=== PATIENT | female | born 2000 | race African-American/Black ===

== ENCOUNTER 2019-05-16 14:23 | Emergency (ER) | payer OTHER ==
--- OUTSIDE RECORDS SUMMARY | 2019-05-16 14:26 | XMS REPORT ---
:2000 Author Organization [facility] Address [address] [place] [address] Dr. Springer. [address] [place] [id number] Care Team Providers Name Role Phone Unavailable Unavailable Unavailable Problems This patient has no known problems. Allergies, Adverse Reactions, Alerts This patient has no known allergies or adverse reactions. Medications This patient has no known medications.
[2019-05-16 15:54] LABS: Absolute Lymphocytes (CBC) 0.7 K/uL (0.7-4.9); Basophils % 0.5 % (0-1.3); Hematocrit 39.2 % (36.0-45.0); Lymphocytes % 13.2 % (15.3-44.8); MPV 7.8 fL (7.6-11.3); RBC Red Blood Cell Count 4.58 M/uL (3.86-4.86)
[2019-05-16 16:09] LABS: ALT/SGPT 39 U/L (12-78); AST/SGOT 16 U/L (15-37); Albumin 4.1 g/dL (3.4-5.0); Alkaline Phosphatase 70 U/L (45-117); BUN Blood Urea Nitrogen 13 mg/dL (7-18); Bicarbonate 27 mmol/L (21-32); Bilirubin Direct < 0.1 mg/dL (0-0.2); Bilirubin Total 0.3 mg/dL (0.2-1.0); Glucose Level 85 mg/dL (74-106); Lipase 71 U/L (73-393); Potassium 3.5 mmol/L (3.5-5.1); Protein, Total 8.5 g/dL (6.4-8.2); Sodium Level 143 mmol/L (136-145)
[2019-05-16 17:21] LABS: Urine Blood 1+ (NEG); Urine Glucose NEGATIVE (NEG); Urine Protein NEGATIVE (NEG); Urine Specific Gravity 1.015 (1.005-1.030); Urine pH 5.5 (5.0-7.0)
--- NOTE | 2019-05-16 17:46 | RAD REPORT ---
EXAM DESCRIPTION: CT - Abdomen Pelvis W Contrast - 05/16/2019 5:32 pm CLINICAL HISTORY: right sided abdominal pain COMPARISON: None. TECHNIQUE: Biphasic, helical CT imaging of the abdomen and pelvis was performed following 100 ml non -ionic IV contrast. Oral contrast was given. All CT scans are performed using dose optimization technique as appropriate and may include automated exposure control or mA/KV adjustment according to patient size. FINDINGS: No suspicious findings in the lung bases. The liver, spleen, and pancreas show no suspicious findings. Gallbladder and biliary tree are also wi thout suspicious finding. Symmetric renal function is seen with no hydronephrosis or suspicious renal mass. No pyelonephritis o r acute parenchymal process. No bladder abnormalities. No adrenal abnormalities. No dilated bowel loops or bowel wall thickening. Appendix is normal. No free air, free fluid or infla mmatory stranding. No hernia, mass or bulky lymphadenopathy. Uterus and ovaries show no suspicious f indings. No suspicious bony findings. IMPRESSION: Contrast enhanced CT abdomen and pelvis showing no significant or suspicious finding.
--- NOTE | 2019-05-16 18:00 | ER ---
Nurse's Notes [facility] Name: Marla Day Age: 18 yrs Sex: Female : 2000 Arrival Date: 05/16/2019 Time: 14:29 Bed 27 Private MD: Diagnosis: Abdominal and pelvic pain Presentation: 05/16 14:34 Presenting complaint: Patient states: I have been having abd pain since March but its la1 worse today and I threw up twice this morning. I had my nexplanon removed in early February but have and I had my period March 13 but have not had once since. Transition of care: patient was not received from another setting of care. Onset of symptoms was May 16, 2019. Risk Assessment: Do you want to hurt yourself or someone else? Patient reports no desire to harm self or others. Initial Sepsis Screen: Does the patient meet any 2 criteria? No. Patient's initial sepsis screen is negative. Does the patient have a suspected source of infection? No. Patient's initial sepsis screen is negative. Care prior to arrival: None. 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 - Social history:: Smoking status: Patient/guardian denies using tobacco. - Ebola Screening: : No symptoms or risks identified at this time. Screenin:15 Abuse screen: Denies threats or abuse. Denies injuries from another. Nutritional rv screening: No deficits noted. Tuberculosis screening: No symptoms or risk factors identified. Fall Risk None identified. Assessment: 15:14 General: Appears in no apparent distress. comfortable, Behavior is calm, cooperative. rv Pain: Complains of pain in abdomen. Neuro: Level of Consciousness is awake, alert, obeys commands, Oriented to person, place, time, situation. Cardiovascular: Patient's skin is warm and dry. Respiratory: Airway is patent. GI: Bowel sounds present X 4 quads. Abd is soft and non tender X 4 quads. GI: Abdomen is round non-distended. : No signs and/or symptoms were reported regarding the genitourinary system. EENT: No signs and/or symptoms were reported regarding the EENT system. Derm: Skin is intact. Musculoskeletal: No signs and/or symptoms reported regarding the musculoskeletal system. 18:10 Reassessment: No changes from previously documented assessment. PATIENT REFUSED THE rv PELVIC EXAM. OPTED TO GO WITH HER OB GYNE FOR THE FOLLOW UP AFTER DISCHARGE. CHASE DE PAZ AWARE OF THE SITUATION. Vital Signs: 14:35 BP 144 / 90; Pulse 110; Resp 16; Temp 97.5; Pulse Ox 98% on R/A; Weight 108.86 kg; la1 Height 5 ft. 2 in. (157.48 cm); 15:52 BP 127 / 92; Pulse 89; Resp 16; Pulse Ox 99% on R/A; rv 18:02 BP 123 / 85 Sitting; Pulse 69; Resp 15; Pulse Ox 98% ; rv 14:35 Body Mass Index 43.90 (108.86 kg, 157.48 cm) la1 ED Course: 14:29 Patient arrived in ED. mr 14:35 Triage completed. la1 14:36 Arm band placed on left wrist. la1 15:04 Krishan Kaplan, RN is Primary Nurse. rv 15:09 Chase De Paz PA is PHCP. jmm 15:09 Srini Gonzales MD is Attending Physician. jmm 15:16 Patient has correct armband on for positive identification. Placed in gown. Bed in low rv position. Call light in reach. Side rails up X 1. Pulse ox on. NIBP on. 15:38 Initial lab(s) drawn, by me, sent to lab. Inserted saline lock: 20 gauge in right lt1 antecubital area, using aseptic technique. 15:42 Radiology exam delayed due to lab results not completed at this time. (BUN/Creatinine). vm2 16:21 Radiology exam delayed due to test not completed at this time. ka 17:32 CT Abd/Pelvis - IV Contrast Only In Process Unspecified. EDMS 18:02 No provider procedures requiring assistance completed. IV discontinued, intact, rv bleeding controlled, No redness/swelling at site. Pressure dressing applied. Administered Medications: No medications were administered Outcome: 17:59 Discharge ordered by MD. jmm 18:03 Discharged to home ambulatory, with family. rv 18:03 Condition: good 18:03 Discharge instructions given to patient, Instructed on discharge instructions, follow up and referral plans. Demonstrated understanding of instructions, follow-up care. 18:03 Discharge instructions given to Instructed on medication usage, Demonstrated rv understanding of medications, Prescriptions given X 1. 18:11 Patient left the ED. rv Signatures: Dispatcher [employer] EDMS Chase De Paz PA PA jmm Rivera, Mary mr Attema, Lee, RN RN laMeri Calix Victoria 2 Krishan Kaplan, RICHARD RN Martina Torrez 1
--- NOTE | 2019-05-16 18:00 | EDPHYS ---
Physician Documentation [facility] Name: Marla Day Age: 18 yrs Sex: Female : 2000 Arrival Date: 05/16/2019 Time: 14:29 Bed 27 Private MD: ED Physician Srini Gonzales HPI: 05/16 15:06 This 18 yrs old Black Female presents to ER via Ambulatory with complaints of Abdominal jmm Pain, Vomiting. 15:06 The patient presents with abdominal pain. Onset: The symptoms/episode began/occurred 1 jmm month(s) ago. The symptoms radiate to right back. Associated signs and symptoms: Pertinent positives: vomiting. This is a 18 year old female with no chronic medical conditions that presents to the ED with complaints of lower abdominal pain which radiates to her right side. Symptoms worsened the morning at approx 2 am with 2 episodes of vomiting. Patient denies diarrhea. . 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 - Social history:: Smoking status: Patient/guardian denies using tobacco. - Ebola Screening: : No symptoms or risks identified at this time. ROS: 15:06 Constitutional: Negative for fever, chills, and weight loss, Cardiovascular: Negative jmm for chest pain, palpitations, and edema, Respiratory: Negative for shortness of breath, cough, wheezing, and pleuritic chest pain. 15:06 Abdomen/GI: Positive for abdominal pain, nausea and vomiting. 15:06 Back: Positive for radiated pain. 15:06 All other systems are negative. Exam: 15:06 Constitutional: This is a well developed, well nourished patient who is awake, alert, jmm and in no acute distress. Head/Face: atraumatic. Eyes: EOMI, no conjunctival erythema appreciated ENT: Moist Mucus Membranes Neck: Trachea midline, Supple Chest/axilla: Normal chest wall appearance and motion. Cardiovascular: Regular rate and rhythm. No edema appreciated Respiratory: Normal respirations, no respiratory distress appreciated 15:06 Back: Normal ROM Skin: General appearance color normal MS/ Extremity: Moves all extremities, no obvious deformities appreciated, no edema noted to the lower extremities Neuro: Awake and alert, normal gait 15:06 Abdomen/GI: Inspection: abdomen appears normal, Bowel sounds: normal, Palpation: abdomen is soft and non-tender, mild abdominal tenderness, in the right lower quadrant. 15:06 Back: CVA tenderness, is absent. Vital Signs: 14:35 BP 144 / 90; Pulse 110; Resp 16; Temp 97.5; Pulse Ox 98% on R/A; Weight 108.86 kg; la1 Height 5 ft. 2 in. (157.48 cm); 15:52 BP 127 / 92; Pulse 89; Resp 16; Pulse Ox 99% on R/A; rv 18:02 BP 123 / 85 Sitting; Pulse 69; Resp 15; Pulse Ox 98% ; rv 14:35 Body Mass Index 43.90 (108.86 kg, 157.48 cm) la1 MDM: 15:17 Patient medically screened. nadeem 17:58 Data reviewed: vital signs, nurses notes. Counseling: I had a detailed discussion with sorin the patient and/or guardian regarding: the historical points, exam findings, and any diagnostic results supporting the discharge/admit diagnosis, lab results, radiology results, the need for outpatient follow up, to return to the emergency department if symptoms worsen or persist or if there are any questions or concerns that arise at home. ED course: Patient refuses pelvic exam. Patient states that she will follow up with her card seller. Patient otherwise given strict return precautions. Patient understood and agrees with the plan of care. . 05/16 15:05 Order name: Urine Dipstick--Ancillary (enter results); Complete Time: 17:22 05/16 15:05 Order name: Urine --Ancillary (enter results); Complete Time: 17:22 05/16 15:27 Order name: Basic Metabolic Panel; Complete Time: 16:34 [facility] 05/16 15:27 Order name: CBC with Diff; Complete Time: 16:34 [facility] 05/16 15:27 Order name: Creatinine for Radiology; Complete Time: 16:34 [facility] 05/16 15:27 Order name: Hepatic Function; Complete Time: 16:34 [facility] 05/16 15:27 Order name: Lipase; Complete Time: 16:34 [facility] 05/16 15:27 Order name: IV Saline Lock; Complete Time: 15:38 [facility] 05/16 15:27 Order name: Labs collected and sent; Complete Time: 15:38 [facility] 05/16 15:27 Order name: CT Abd/Pelvis - IV Contrast Only; Complete Time: 17:48 [facility] Administered Medications: No medications were administered Disposition: 05/17 09:17 Co-signature as Attending Physician, Srini Gonzales MD I agree with the assessment and nadeem plan of care. Disposition: 05/16/19 17:59 Discharged to Home. Impression: Abdominal and pelvic pain. - Condition is Stable. - Discharge Instructions: Pelvic Pain, Female. - Prescriptions for Ibuprofen 600 mg Oral Tablet - take 1 tablet by ORAL route every 6 hours As needed take with food; 30 tablet. - Medication Reconciliation Form, Thank You Letter, Antibiotic Education, Prescription Opioid Use form. - Follow up: Private Physician; When: 2 - 3 days; Reason: Recheck today's complaints, Continuance of care, Re-evaluation by your physician. Signatures: Dispatcher [employer] EDSrini Zimmer MD MD cha Mickail, Joel, PA PA [facility] Ricardo Burns RN RN laKrishan Martínez RN RN rv Corrections: (The following items were deleted from the chart) 05/16 18:02 17:54 Pelvic Exam Setup ordered. [facility] rv 18:11 17:59 05/16/2019 17:59 Discharged to Home. Impression: Abdominal and pelvic pain. rv Condition is Stable. Forms are Medication Reconciliation Form, Thank You Letter, Antibiotic Education, Prescription Opioid Use. Follow up: Private Physician; When: 2 - 3 days; Reason: Recheck today's complaints, Continuance of care, Re-evaluation by your physician. [facility]
== END 2019-05-16 18:11 | disposition home or self-care (01) ==
LOC: ER 14:23
DX: R10.2 Pelvic and perineal pain (principal); R10.9 Unspecified abdominal pain
CPT/HCPCS: 85025; 80048; 36415; 81025; 80076; 81003; 83690; 74177; 99284; Q9967

== ENCOUNTER 2021-11-19 12:40 | Emergency (ER) | payer OTHER, SELFPAY ==
--- OUTSIDE RECORDS SUMMARY | 2021-11-19 12:43 | XMS REPORT | Continuity of Care Document ---
:2000 Author Organization [facility] t Address [address] [place] [address] Dr. Springer. [address] [place] [address] Care Team Providers Name Role Phone Fara MILLER, H Attending Clinician Lab, Fam Pob I Attending Clinician Unavailable Ellis Parrish Attending Clinician Ellis LEAHY Attending Clinician Unavailable Daphne HASKINS Attending Clinician Unavailable Doctor Unassigned, Name Attending Clinician Unavailable Del Castillo Attending Clinician Payers Payer Name Policy Type Policy Number Effective Date Expiration Date S [facility] [id number] 2014 PPO 00:00:00 Problems This patient has no known problems. Allergies, Adverse Reactions, Alerts Allergy Allergy Status Severity Reaction(s) Onset Inactive Treating Comm ents Source Name Type Date Date Clinician NO KNOWN Drug Active Univers ALLERGIE Class ity of S [facility] Social History Social Habit Start Date Stop Date Quantity Comments Source Exposure to Yes [facility] SARS-CoV-2 (event) Medica l [place] Tobacco use and 2018-08-27 2018-08-27 Never used [facility] exposure 00:00:00 00:00:00 [facility] Sex Assigned At [birth year] [facility] 00:00:00 00:00:00 [facility] Smoking Status Start Date Stop Date Source Never smoker [facility] Medications Ordered Filled Start Stop Current Ordering Indication Dosage Frequency Signature Comments Components Source Medication Medication Date Date Medication? Clinician (SIG) Name Name jaymeycenmanuel 2017-09 Yes Take 500 Un curt n 2-04 mg day 1, ity of (ZITHROMAX 00:00: then 250 Thomas as Z-DELORES) 250 00 mg days 2 Medi maggi mg tablet to 5. Branch meganithromguy 2017-09 Yes Take 500 Un curt n 2-04 mg day 1, ity of (ZITHROMAX 00:00: then 250 Thomas as Z-DLEORES) 250 00 mg days 2 Medi maggi mg tablet to 5. [place] [facility] 2017-09 Yes Take 500 Un curt n 2-04 mg day 1, ity of (ZITHROMAX 00:00: then 250 Thomas as Z-DELORES) 250 00 mg days 2 Medi maggi mg tablet to 5. [place] [facility] 2017-09 Yes Take 500 Un curt n 2-04 mg day 1, ity of (ZITHROMAX 00:00: then 250 Thomas as Z-DELORES) 250 00 mg days 2 Medi maggi mg tablet to 5. [place] [facility] 2017-09 Yes Take 500 Un curt n 2-04 mg day 1, ity of (ZITHROMAX 00:00: then 250 Thomas as Z-DELORES) 250 00 mg days 2 Medi maggi mg tablet to 5. [place] [facility] 2017-09 Yes Take 500 Un curt n 2-04 mg day 1, ity of (ZITHROMAX 00:00: then 250 Thomas as Z-DELORES) 250 00 mg days 2 [facility] maggi [facility] 2017-[facility] Yes Take 500 Un curt n 2-04 mg day 1, ity of (ZITHROMAX 00:00: then 250 Thomas as Z-DELORES) 250 00 mg days 2 Medi maggi mg tablet to 5. [facility] 2017-09 Yes Take 500 Un curt n 2-04 mg day 1, ity of (ZITHROMAX 00:00: then 250 Thomas as Z-DELORES) 250 00 mg days 2 Medi maggi mg tablet to 5. [place] Immunizations Ordered Immunization Filled Immunization Date Status Commen ts Source Name Name SARS-COV-2 COVID-19 2021-01-03 Completed Unive rsity of PFIZER VACCINE 00:00:00 [facility] SARS-COV-2 COVID-19 2021-01-03 Completed Unive rsity of PFIZER VACCINE 00:00:00 [facility] Meningococcal 2018-01-18 Completed University of Polysaccharide 00:00:00 [facility] (groups A, C, Y and Branc h W-135) conjugate vaccine (MCV4P) Meningococcal 2018-01-18 Completed University of Polysaccharide 00:00:00 [facility] (groups A, C, Y and Branc h W-135) conjugate vaccine (MCV4P) Meningococcal 2018-01-18 Completed University of Polysaccharide 00:00:00 [facility] (groups A, C, Y and Branc h W-135) conjugate vaccine (MCV4P) Meningococcal 2018-01-18 Completed University of Polysaccharide 00:00:00 [facility] (groups A, C, Y and Branc h W-135) conjugate vaccine (MCV4P) Meningococcal 2018-01-18 Completed University of Polysaccharide 00:00:00 [facility] (groups A, C, Y and Branc h W-135) conjugate vaccine (MCV4P) Meningococcal 2018-01-18 Completed University of Polysaccharide 00:00:00 [facility] (groups A, C, Y and Branc h W-135) conjugate vaccine (MCV4P) Meningococcal 2018-01-18 Completed University of Polysaccharide 00:00:00 [facility] (groups A, C, Y and Branc h W-135) conjugate vaccine (MCV4P) Meningococcal 2018-01-18 Completed University of Polysaccharide 00:00:00 [facility] (groups A, C, Y and Branc h W-135) conjugate vaccine (MCV4P) Procedures Procedure Date / Time Performed Performing Clinician [facility] rubi EXTERNAL PROVIDER 2019-05-25 05:01:00 Doctor Unassigned, No Univ [facility] RECORDS Name [facility] EXTERNAL PROVIDER 2019-05-16 05:01:00 Doctor Unassigned, No Univ [facility] RECORDS Name [facility] Encounters Start End Encounter Admission Attending Care Care Encounter Source Date/Time Date/Time Type Type Clinicians Facility Department ID 2021-01-27 2021-01-27 Outpatient [facility] [id number] Univers 15:00:00 15:00:00 ity of [facility] 2021-01-07 2021-01-07 Telephone ALBERTO Chaudhari [id number] Univers 00:00:00 00:00:00 Faustino CARTER [id number] i [facility] [id number] Thomas as [phone] [address] 2021-01-05 2021-01-05 Laboratory Lab, Adc Fam Pob I [facility] [id number]. [id number] Univers 14:20:01 14:40:01 Only [facility] [id number] ity of [place] [id number] Thomas as Professio [phone] [address] One 2021-01-05 2021-01-05 Outpatient [facility] [id number] Univers 14:00:00 14:00:[id number] [facility] 2021-01-05 2021-01-05 Outpatient R ALVARO, [facility] [id number] Univers 14:00:00 14:00:[address] [facility] 2021-01-03 2021-01-03 Outpatient R JOZEF, [facility] [id number] Univers 15:00:00 15:00:[address] [facility] 2020-12-23 2020-12-23 Laboratory Lab, [facility] [id number] Univers 09:21:05 09:41:05 Only [facility] [id number] ity of [place] [id number] Thomas as Professio [phone] [address] One 2020-12-23 2020-12-23 [facility] [id number] Univers 09:40:00 09:40:[address] [facility] 2020-12-23 2020-12-23 Outpatient R [facility] [id number] Univers 09:00:00 09:00:[id number] [facility] 2020-12-23 2020-12-23 Outpatient R [facility] [id number] Univers 09:00:00 09:00:[address] [facility] 2020-12-23 2020-12-23 Letter Doctor DOMINGUEZ [id number] Univers 00:00:00 00:00:00 (Out) Unassigned, [facility] [id number] [facility] [id number] Thomas as [phone] [facility] 044 Branch 2020-12-23 2020-12-23 Letter Doctor ALBERTO [id number] Univers 00:00:00 00:00:00 (Out) Unassigned, EMMA [id number] ity of [place] [facility] [id number] Thomas as [phone] [facility] 044 Branch 2019-05-25 2019-05-25 Orders Doctor ALBERTO [id number] Univers 00:00:00 00:00:00 Only Unassigned, [facility] [id number] ity of [place] [facility] [id number] Thomas as [phone] [facility] 009 Branch 2019-05-20 2019-05-20 Telephone de [facility] [id number] Univers 00:00:00 00:00:00 Clint Juan [id number] ity of [facility] [id number] Te [facility] [phone] [facility] 225 Branch 2019-05-16 2019-05-16 Orders Doctor ALBERTO [id number] Univers 00:00:00 00:00:00 Only Unassigned, EMMA [id number] ity of [place] [facility] [id number] Thomas as [phone] [facility] 009 Branch Results This patient has no known results.
[2021-11-19] MEDS ORDERED: KETOROLAC 30 MG/ML INJ ONE (13:18)
[2021-11-19 13:27] LABS: Urine Blood 3+ (Negative); Urine Glucose Negative (Negative); Urine Protein 1+ (Negative); Urine Specific Gravity 1.025 (1.005-1.030)
[2021-11-19 14:11] LABS: Urine Specific Gravity/Preg 1.025 (1.005-1.030)
--- NOTE | 2021-11-19 14:45 | EDPHYS ---
Physician Documentation [facility] Name: Marla Day Age: 20 yrs Sex: Female : 2000 Arrival Date: 11/19/2021 Time: 12:42 Bed 8 Private MD: ED Physician Alfonzo Sullivan HPI: 11/19 13:10 This 20 yrs old Black Female presents to ER via Ambulatory with complaints of Vaginal ms3 Bleeding. 13:10 The patient presents with pelvic pain, that is located in/on the suprapubic area, the ms3 pain does not radiate, the pain is described as severe, constant, crampy, urinary symptoms. Onset: The symptoms/episode began/occurred 14 hour(s) ago. Modifying factors: The symptoms are alleviated by nothing, the symptoms are aggravated by nothing. Associated signs and symptoms: The patient has no apparent associated signs or symptoms. 20-year-old female presents for vaginal bleeding with cramping. Patient states she started her menses last night. Patient states pain began at 11 PM. Patient states her pain is a 9/10 and described as cramping. Patient states she may be . Patient denies dysuria, urinary frequency, urinary urgency.. 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 - Social history:: Smoking status: Patient denies any tobacco usage or history of. ROS: 13:46 Constitutional: Negative for fever, and chills. Eyes: Negative for injury, pain, ms3 redness, and discharge, Neck: Negative for injury, pain, and swelling, Cardiovascular: Negative for chest pain, and palpitations. Respiratory: Negative for shortness of breath, cough, wheezing, and pleuritic chest pain, Back: Negative for injury and pain, MS/Extremity: Negative for injury and deformity, Skin: Negative for injury, rash, and discoloration, Neuro: Negative for headache, weakness, numbness, tingling. Psych: Negative for depression, anxiety, suicide ideation, homicidal ideation, and hallucinations. 13:46 Abdomen/GI: Positive for abdominal pain. 13:46 : Positive for vaginal bleeding. Exam: 13:48 Constitutional: This is a well developed, well nourished patient who is awake, alert, ms3 and in no acute distress. Head/Face: Normocephalic, atraumatic. Eyes: Pupils equal round and reactive to light, extra-ocular motions intact. Lids and lashes normal. Conjunctiva and sclera are non-icteric and not injected. Periorbital areas with no swelling, redness, or edema. Neck: Trachea midline, no cervical lymphadenopathy. Supple, full range of motion without nuchal rigidity, or vertebral point tenderness. No Meningismus. Chest/axilla: Normal chest wall appearance and motion. Nontender with no deformity. Cardiovascular: Regular rate and rhythm with a normal S1 and S2. No gallops, murmurs, or rubs. Normal PMI, no JVD. No pulse deficits. Respiratory: Lungs have equal breath sounds bilaterally, clear to auscultation and percussion. No rales, rhonchi or wheezes noted. No increased work of breathing, no retractions or nasal flaring. Back: No spinal tenderness. No costovertebral tenderness. Full range of motion. MS/ Extremity: Pulses equal, no cyanosis. Neurovascular intact. Full, normal range of motion. Neuro: Awake and alert, GCS 15, oriented to person, place, time, and situation. Cranial nerves II-XII grossly intact. Motor strength 5/5 in all extremities. Sensory grossly intact. Cerebellar exam normal. Normal gait. Psych: Awake, alert, with orientation to person, place and time. Behavior, mood, and affect are within normal limits. 13:48 Abdomen/GI: Inspection: abdomen appears normal, Bowel sounds: normal, Palpation: moderate abdominal tenderness, in the suprapubic area, Rectal exam: Vital Signs: 13:10 BP 122 / 75; Pulse 92; Resp 18; Temp 97.8; Pulse Ox 99% on R/A; Weight 87.09 kg; Height ph 5 ft. 2 in. (157.48 cm); 14:54 BP 101 / 70; Pulse 62; Resp 17; Pulse Ox 99% ; Pain 3/10; busch 13:10 Body Mass Index 35.12 (87.09 kg, 157.48 cm) ph MDM: 13:01 Patient medically screened. ms3 13:49 Differential diagnosis: dysfunctional uterine bleeding, menorrhea, ms3 14:44 Data reviewed: vital signs, nurses notes, lab test result(s). Counseling: I had a ms3 detailed discussion with the patient and/or guardian regarding: the historical points, exam findings, and any diagnostic results supporting the discharge/admit diagnosis, lab results, the need for outpatient follow up, an OB/Gyne specialist. ED course: On reevaluation patient's pain improved, patient is alert and oriented x4, in no apparent distress, nontoxic, ambulatory in emergency department. Patient to follow-up with Dr. Ceja in 48 hours. Patient understands and agrees with plan. All questions were answered. Return precautions discussed include worsening symptoms, or any other concerns.. 11/19 13:27 Order name: Urine Dipstick-Ancillary; Complete Time: 14:46 EDMS 11/19 13:27 Order name: Urine --Ancillary (enter results) eb 11/19 13:06 Order name: Urine Test (obtain specimen); Complete Time: 13:27 ms3 11/19 13:28 Order name: Urine --Ancillary; Complete Time: 14:46 EDMS Administered Medications: 13:29 Drug: Ketorolac 15 mg Route: IM; Site: right deltoid; busch 13:29 Follow up: Response: No adverse reaction busch Disposition Summary: 11/19/21 14:44 Discharge Ordered Location: Home ms3 Problem: new ms3 Symptoms: have improved ms3 Condition: Stable ms3 Diagnosis - Dysmenorrhea, unspecified ms3 - Pelvic pain ms3 Followup: ms3 - With: Stephan Ceja MD - When: 48 Hours - Reason: Recheck today's complaints Discharge Instructions: - Discharge Summary Sheet jmm - Dysmenorrhea ms3 Forms: - Work release form jmm - Medication Reconciliation Form ms3 - Thank You Letter ms3 - Antibiotic Education ms3 - Prescription Opioid Use ms3 Prescriptions: - Ibuprofen 600 mg Oral Tablet - take 1 tablet by ORAL route every 6 hours As needed take with food; 30 tablet; ms3 Refills: 0, Product Selection Permitted Signatures: Dispatcher [employer] EDMS Alfonzo Sullivan DO DO ms3 Kristyn Lopez RN [facility]
--- NOTE | 2021-11-19 14:45 | ER ---
Nurse's Notes [facility] Name: Marla Day Age: 20 yrs Sex: Female : 2000 Arrival Date: 11/19/2021 Time: 12:42 Bed 8 Private MD: Diagnosis: Dysmenorrhea, unspecified;Pelvic pain Presentation: 11/19 13:10 Chief complaint: Patient states: Painful menstrual cycle, states, " I just started my ph period yesterday and my cramps are a lot worse than usual and I'm bleeding heavier." Unknown if pt could be , pt reports that last period was on time but silk examiner and shorter than usual. States that she has not taken anything for pain at home. Coronavirus screen: Vaccine status: Patient reports receiving the 1st dose of the Covid vaccine. Ebola Screen: No symptoms or risks identified at this time. Initial Sepsis Screen: Does the patient meet any 2 criteria? No. Patient's initial sepsis screen is negative. Does the patient have a suspected source of infection? No. Patient's initial sepsis screen is negative. Risk Assessment: Do you want to hurt yourself or someone else? Patient reports no desire to harm self or others. Onset of symptoms was November 19, 2021. 13:10 Method Of Arrival: Ambulatory ph 13:10 Acuity: SANDIE 4 ph Triage Assessment: 14:55 General: Appears in no apparent distress. Behavior is calm, cooperative, appropriate busch for age. MANAGER PATIENT: 14:56 upt negative busch Historical: - Allergies: 13:11 No Known Allergies; busch - Home Meds: 13:11 None [Active]; busch - PMHx: 13:11 None; busch - PSHx: 13:11 None; busch - Immunization history:: Adult Immunizations up to date. - Social history:: Smoking status: Patient denies any tobacco usage or history of. Screenin:11 Abuse screen: Denies threats or abuse. Denies injuries from another. Nutritional busch screening: No deficits noted. Tuberculosis screening: No symptoms or risk factors identified. Fall Risk None identified. Assessment: 13:10 Pain: Complains of pain in abdomen. : Urine is blood tinged, Reports cramping, busch vaginal bleeding that is bright red. 13:12 Reassessment: pt reported having pain cramps, currently on monthly cycle. busch 14:10 Reassessment: No changes from previously documented assessment. Patient and/or family busch updated on plan of care and expected duration. Pain level reassessed. Patient is alert, oriented x 3, equal unlabored respirations, skin warm/dry/pink. 14:55 Reassessment: No changes from previously documented assessment. Patient and/or family busch updated on plan of care and expected duration. Pain level reassessed. Patient is alert, oriented x 3, equal unlabored respirations, skin warm/dry/pink. Vital Signs: 13:10 BP 122 / 75; Pulse 92; Resp 18; Temp 97.8; Pulse Ox 99% on R/A; Weight 87.09 kg; Height ph 5 ft. 2 in. (157.48 cm); 14:54 BP 101 / 70; Pulse 62; Resp 17; Pulse Ox 99% ; Pain 3/10; busch 13:10 Body Mass Index 35.12 (87.09 kg, 157.48 cm) ph ED Course: 12:42 Patient arrived in ED. rg4 13:06 Alfonzo Sullivan DO is Attending Physician. ms3 13:11 Patient has correct armband on for positive identification. Bed in low position. busch 13:11 No provider procedures requiring assistance completed. busch 13:13 Triage completed. ph 13:13 Arm band placed on Patient placed in an exam room. ph 13:17 Rommel Rucker RN is Primary Nurse. ll1 14:42 Stephan Ceja MD is Referral Physician. ms3 14:56 Patient did not have IV access during this emergency room visit. busch Administered Medications: 13:29 Drug: Ketorolac 15 mg Route: IM; Site: right deltoid; busch 13:29 Follow up: Response: No adverse reaction busch Outcome: 14:44 Discharge ordered by . ms3 14:55 Discharged to home ambulatory. busch 14:55 Condition: stable 14:55 Discharge instructions given to patient, Instructed on discharge instructions, follow up and referral plans. medication usage, Demonstrated understanding of instructions, follow-up care, medications, Prescriptions given X 1. 15:02 Patient left the ED. ll1 Signatures: Kathi Thompson RN RN Rosa Gleason rg4 Rommel Rucker RN RN [facility] Alfonzo Sullivan DO DO ms3 Au-Stager, Kristyn, RN RN busch
[2021-11-19 15:26] VITALS: TEMP 97.8; O2SAT 99
[2021-11-19 15:28] VITALS: BP 101/70
== END 2021-11-19 15:02 | disposition home or self-care (01) ==
LOC: ER 12:40
DX: N94.6 Dysmenorrhea, unspecified (principal)
CPT/HCPCS: 81003; 81025; 96372; 99283

== ENCOUNTER 2024-11-01 10:52 | Emergency (ER) | payer OTHER, SELFPAY ==
--- OUTSIDE RECORDS SUMMARY | 2024-11-01 10:54 | XMS REPORT | Continuity of Care Document ---
Author Name Unknown Address [address] [place] [address] [facility] Address [address] [place] [address] Care Team Providers Care President Financial Institution Name Role Phone [email or web address] Attending Clinician UnavailFaustino Yeung MD Attending Clinician [phone] Lab, Adc Fam Pob I Attending Clinician Unavailab Alysha Marquez Attending Clinician [phone] ALYSHA LEAHY Attending Clinician Unavailable KHADIJAH HASKINS Attending Clinician Unavailable Doctor Unassigned, [place] Attending Clinician U Yue Jiménez Attending Clinician [phone] [email or web address] Admitting Clinician Xiao chan Payers Payer Name Policy Type Policy Number Effective Date Expirati on Date Source [facility] [id number] 2014 00:00:00 Allergies, Adverse Reactions, Alerts Allergy Name Allergy Type Status Severity Reaction(s) Onset Date Inactive Date Treating Clinician Comments Source NO KNOWN ALLERGIE S Drug Class Active [facility] Social History Social Habit Start Date Stop Date Quantity Comments Source Exposure to SARS-CoV-2 (event) Yes [facility] Tobacco use and exposure 2018-08-27 00:00:00 2018-08-27 00:00:00 Never used [facility] Sex Assigned At 2000 00:00:00 2000 00:00:00 [facility] Smoking Status Start Date Stop Date Source Never smoker [facility] Medications Ordered Medication Name Filled Medication Name Start Date Stop Date Current Medication? Ordering Clinician Indication Dosage Frequency Signature (SIG) Comments Components Source azithromyci n (ZITHROMAX Z-DELORES) 250 mg tablet 2017-09 00:00: 00 Yes Take 500 mg day 1, then 250 mg days 2 to 5. [facility] Procedures Procedure Date / Time Performed Performing Clinicia n Source EXTERNAL PROVIDER RECORDS 2019-05-25 05:01:00 Doctor Unassigned, [place] [facility] EXTERNAL PROVIDER RECORDS 2019-05-16 05:01:00 Doctor Unassigned, [place] [facility] Encounters Start Date/Time End Date/Time Encounter Type Admission Type Attending Clinicians Care Facility Care Department Encounter ID Source 2023-07-20 00:00:00 2023-07-20 00:00:00 Outpatient [email or web address] [facility] [id number] [facility] 2021-01-27 15:00:00 2021-01-27 15:00:00 Outpatient [facility] [id number] [facility] 2021-01-07 00:00:00 2021-01-07 00:00:00 Telephone Faustino Chaudhari [facility] .[id number] [facility] 2021-01-05 14:20:01 2021-01-05 14:40:01 Laboratory Only Lab, Adc Fam Pob I Alysha Leahy [facility] ..[id number] [facility] 2021-01-05 14:00:00 2021-01-05 14:00:00 Outpatient ALYSHA HILARIO [facility] [id number] [facility] 2021-01-03 15:00:00 2021-01-03 15:00:00 Outpatient KHADIJAH CHANG [facility] [id number] [facility] 2020-12-23 09:21:05 2020-12-23 09:41:05 Laboratory Only Lab, Adc Fam Pob I Alysha Leahy [facility] One [id number] [facility] 2020-12-23 09:40:00 2020-12-23 09:40:00 Outpatient R ALYSHA LEAHY [facility] [id number] [facility] 2020-12-23 09:00:00 2020-12-23 09:00:00 Outpatient R [facility] [id number] [facility] 2020-12-23 00:00:00 2020-12-23 00:00:00 Letter (Out) Doctor Unassigned, [place] [facility] [id number] [facility] 2020-12-23 00:00:00 2020-12-23 00:00:00 Letter (Out) Doctor Unassigned, [place] [facility] [id number] [facility] 2019-05-25 00:00:00 2019-05-25 00:00:00 Orders Only Doctor Unassigned, [place] [facility] [id number] [facility] 2019-05-20 00:00:00 2019-05-20 00:00:00 Telephone Yue Irwin [facility] [id number] [facility] 2019-05-16 00:00:00 2019-05-16 00:00:00 Orders Only Doctor Unassigned, [place] [facility] [id number] [facility]
[2024-11-01 11:28] LABS: Absolute Basophils 0.1 K/uL (0-0.5); Absolute Eosinophils 0.2 K/uL (0-0.5); Absolute Lymphocytes (CBC) 1.2 K/uL (0.7-4.9); Absolute Monocytes 0.5 K/uL (0.1-1.3); Absolute Neutrophil 5.1 K/uL (1.8-8.0); Basophils % 0.8 % (0-1.3); Eosinophils % 2.1 % (0-4.4); Hemoglobin 12.9 g/dL (12.0-15.0); Lymphocytes % 17.5 % (15.3-44.8); MCH 29.7 pg (27.0-35.0); MCV 87.4 fL (80-100); MPV 7.6 fL (7.6-11.3); Monocytes % 7.4 % (3.3-12.3); Neutrophils % 72.2 % (41.7-73.7); Platelets 356 thou/uL (152-406); RBC Red Blood Cell Count 4.35 M/uL (3.86-4.86)
[2024-11-01 11:39] LABS: Specific Gravity 1.027 (1.005-1.030)
[2024-11-01 11:40] LABS: Specific Gravity 1.027 (1.005-1.030); Sqamous Epithelial <5 /HPF (None Seen); Urine Bacteria None Seen /HPF (<20); Urine Bilirubin NEGATIVE (Negative); Urine Blood Trace (Negative); Urine Clarity Clear (Clear); Urine Color Light-Yellow (Yellow); Urine Culture Reflex Order NOT NEEDED; Urine Glucose NEGATIVE (Negative); Urine Ketones NEGATIVE (Negative); Urine Microscopic Reflex YN ORDER UMIC; Urine Mucus 1+ /HPF (None Seen); Urine Nitrite NEGATIVE (Negative); Urine Protein NEGATIVE (Negative); Urine Urobilinogen Normal (Normal); Urine WBC <5 /HPF (<5); Urine pH 6.5 (5.0-7.0)
[2024-11-01 11:44] LABS: ALT/SGPT 19 U/L (13-56); Albumin 3.8 g/dL (3.4-5.0); Albumin/Globulin Ratio 0.9 (1.1-1.8); Alkaline Phosphatase 57 U/L (45-117); Anion Gap 6.9 mEq/L (5.0-15.0); BUN Blood Urea Nitrogen 12 mg/dL (7-18); Bicarbonate 26 mEq/L (21-32); Bilirubin Total 0.3 mg/dL (0.2-1.0); Globulin 4.3 g/dL (2.3-3.5); Glomerular Filtration Rate 126 ml/min (=/>90); Glucose Level 100 mg/dL (74-106); Lipase 20 U/L (13-75); Potassium 3.9 mEq/L (3.5-5.1); Protein, Total 8.1 g/dL (6.4-8.2); Sodium Level 137 mEq/L (136-145)
[2024-11-01 11:53] LABS: AST/SGOT < 10 U/L (15-37)
--- NOTE | 2024-11-01 12:39 | RAD REPORT ---
EXAMINATION: CT ABDOMEN AND PELVIS WITH CONTRAST CLINICAL INDICATION: Female, 23 years old.ABD PAIN TECHNIQUE: CT abdomen and pelvis was performed, after the administration of IV contrast, as per depar tment protocol. Axial, sagittal and coronal reconstructions were obtained. One or more of the following dose reduction techniques were used: Automated exposure control, adjustment of the mA and/o r kV according to patient size, and/or iterative reconstruction. Unless otherwise specified, incidental findings do not require dedicated imaging follow-up. [id number]. COMPARISON: 05/16/2019 FINDINGS: LOWER CHEST: No acute process identified.No significant pericardial effusion. UPPER GI: No significant abnormality. LIVER: No significant focal abnormality. GALLBLADDER/BILE DUCTS: No biliary ductal dilatation.? PANCREAS: No mass, ductal dilation, or miriam-pancreatic fluid. SPLEEN: Unremarkable. ADRENALS: No adrenal masses. KIDNEYS AND URETERS: No hydronephrosis.Low density and/or too small to characterize renal lesions whi ch are statistically benign. ABDOMINAL AORTA AND OTHER VESSELS: Normal caliber aorta and IVC. PERITONEUM: Small volume of pelvic free fluid which is likely physiologic. LYMPH NODES: No pathologic lymphadenopathy. ABDOMINAL WALL: Unremarkable SMALL BOWEL/COLON: Small bowel has normal course and caliber. No colonic wall thickening or pericolon ic inflammatory changes.Normal appendix. URINARY BLADDER: Underdistended but grossly unremarkable. REPRODUCTIVE ORGANS: 3.6 cm left ovarian lesion which is likely physiologic. <=5 cm: No follow-up pancho ging recommended MUSCULOSKELETAL: No acute or suspicious osseous abnormality. ADDITIONAL FINDINGS: None. IMPRESSION: No acute or significant abnormalities seen in the abdomen or pelvis. Normal appendix.
[2024-11-01] MEDS ORDERED: DICYCLOMINE HCL 10 MG CAP ONE (13:08)
[2024-11-01] MEDS ORDERED: KETOROLAC 30 MG/ML INJ ONE (13:08)
--- NOTE | 2024-11-01 13:48 | ER ---
Nurse's Notes [facility] Name: Marla Day Age: 23 yrs Sex: Female : 2000 Arrival Date: 11/01/2024 Time: 10:52 Bed 15 Private MD: Diagnosis: Lower abdominal pain, unspecified Presentation: 11/01 11:08 Chief complaint: Lower abdominal pain and constipation x 1 week, vomit x 1 two days hb ago. Coronavirus screen: At this time, the client does not indicate any symptoms associated with coronavirus-19. Ebola Screen: No symptoms or risks identified at this time. Initial Sepsis Screen: Does the patient meet any 2 criteria? No. Patient's initial sepsis screen is negative. Does the patient have a suspected source of infection? No. Patient's initial sepsis screen is negative. Risk Assessment: Do you want to hurt yourself or someone else? Patient reports no desire to harm self or others. Onset of symptoms was October 25, 2024. 11:08 Method Of Arrival: Ambulatory hb 11:08 Acuity: SANDIE 3 hb Historical: - Allergies: 11:10 No Known Allergies; hb - Home Meds: 11:10 None [Active]; hb - PMHx: 11:10 None; hb - PSHx: 11:10 None; hb - Immunization history:: Adult Immunizations up to date. - Infectious Disease History:: Denies. - Social history:: Smoking status: Reported history of juuling and/or vaping. Screenin:46 [facility] ED Fall Risk Assessment (Adult) History of falling in the last 3 months, ph including since admission No falls in past 3 months (0 pts) Confusion or Disorientation No (0 pts) Intoxicated or Sedated No (0 pts) Impaired Gait No (0 pts) Mobility Assist Device Used No (0 pt) Altered Elimination No (0 pt) Score/Fall Risk Level 0 - 2 = Low Risk Oriented to surroundings, Maintained a safe environment, Hourly rounding (assess needs \T\ fall precautionary measures) done. Abuse screen: Denies threats or abuse. Denies injuries from another. Nutritional screening: No deficits noted. Tuberculosis screening: No symptoms or risk factors identified. Assessment: 11:44 General: Appears in no apparent distress. Behavior is calm, cooperative. Pain: Complains of pain in right lower quadrant and left lower quadrant. Neuro: Level of Consciousness is awake, alert, obeys commands, Oriented to person, place, time, situation. Cardiovascular: Capillary refill < 3 seconds in bilateral fingers Patient's skin is warm and dry. Respiratory: Airway is patent Respiratory effort is even, unlabored. GI: Reports lower abdominal pain, constipation, nausea. Derm: Skin is pink, warm \T\ dry. Musculoskeletal: Circulation, motion, and sensation intact. Range of motion: intact in all extremities. Vital Signs: 11:08 BP 138 / 92; Pulse 68; Resp 16; Temp 98.8(O); Pulse Ox 100% on R/A; Weight 99.79 kg; hb Height 5 ft. 2 in. ; Pain 5/10; 13:17 BP 133 / 91; Pulse 74; Resp 18; Pulse Ox 99% on R/A; ph 14:14 BP 127 / 89; Pulse 72; Resp 18; Temp 97.5; Pulse Ox 98% on R/A; ph 11:08 Body Mass Index 40.24 (99.79 kg, 157.48 cm) hb 11:08 Pain Scale: Adult hb ED Course: 10:55 Patient arrived in ED. ra3 10:55 Sonia Ding PA-C is PHCP. sb4 10:55 Gerber Gasca MD is Attending Physician. sb4 11:08 Kathi Thompson, RN is Primary Nurse. ph 11:10 Triage completed. hb 11:10 Arm band placed on. hb 11:30 Initial lab(s) drawn, by ED staff, sent to lab. Urine collected: clean catch specimen, ph clear. Inserted saline lock: 20 gauge in right antecubital area, using aseptic technique. Blood collected. Flushed with 10 mL NS. 11:35 CMP Sent. ph 11:35 Lipase Sent. ph 11:35 Test, Urine Sent. ph 11:35 Urinalysis w/ reflexes Sent. ph 11:48 Patient has correct armband on for positive identification. Bed in low position. Call ph light in reach. Side rails up X 1. Pulse ox on. NIBP on. Door closed. Noise minimized. Warm blanket given. 12:32 CT Abd/Pelvis - IV Contrast Only In Process Unspecified. EDMS 14:14 No provider procedures requiring assistance completed. IV discontinued, intact, ph bleeding controlled, No redness/swelling at site. Pressure dressing applied. Administered Medications: 13:17 Drug: Ketorolac IVP 15 mg IVP once Route: IVP; Site: right antecubital; ph 14:14 Follow up: Response: No adverse reaction ph 13:17 Drug: Dicyclomine PO 20 mg PO once Route: PO; ph 14:14 Follow up: Response: No adverse reaction ph Medication: 11:48 VIS not applicable for this client. ph Outcome: 13:47 Discharge ordered by MD. roland 14:14 Discharged to home ambulatory, ph 14:14 Condition: good 14:14 Discharge instructions given to patient, Instructed on discharge instructions, follow up and referral plans. medication usage, Demonstrated understanding of instructions, follow-up care, medications, Prescriptions given X 2, 14:15 Patient left the ED. ph Signatures: Dispatcher [employer] Kathi Head RN RN ph Baxter, Heather, RN RN hb Brown, Sophia, PA-C PABrisa Chaudhari ra3
--- NOTE | 2024-11-01 13:48 | EDPHYS ---
Physician Documentation [facility] Name: Marla Day Age: 23 yrs Sex: Female : 2000 Arrival Date: 11/01/2024 Time: 10:52 Bed 15 Private MD: ED Physician Gerber Gasca HPI: 11/01 11:06 This 23 yrs old Black Female presents to ER via Unassigned with complaints of abdominal sb4 pain. 11:07 The patient presents with abdominal pain in the lower abdomen. Onset: The sb4 symptoms/episode began/occurred 1 week(s) ago. The symptoms do not radiate. Associated signs and symptoms: Pertinent positives: nausea and vomiting, constipation. The symptoms are described as crampy. lower abdominal pain x 1 week. has not had a normal BM in that time period. 1 episode of emesis. pain is worse with ambulation/movement, better with rest. denies any prior episodes. menstrual period has been abnormal, unsure if . Historical: - Allergies: 11:10 No Known Allergies; hb - Home Meds: 11:10 None [Active]; hb - PMHx: 11:10 None; hb - PSHx: 11:10 None; hb - Immunization history:: Adult Immunizations up to date. - Infectious Disease History:: Denies. - Social history:: Smoking status: Reported history of juuling and/or vaping. ROS: 11:09 Constitutional: Negative for fever, chills, and weight loss, sb4 11:09 Abdomen/GI: Positive for abdominal pain, nausea and vomiting, constipation, abdominal cramps, 11:09 All other systems are negative, Exam: 11:09 Head/Face: Normocephalic, atraumatic. Eyes: Extra-ocular motions intact. Periorbital sb4 areas with no swelling, redness, or edema. ENT: Mucous membranes moist. Cardiovascular: Regular rate and rhythm with a normal S1 and S2. Respiratory: No increased work of breathing, no retractions or nasal flaring. Abdomen/GI: Soft, non-tender, no distension. Skin: Warm, dry with normal turgor. Normal color with no rashes, no lesions, and no evidence of cellulitis. 11:09 Constitutional: The patient appears in no acute distress, alert, awake, Vital Signs: 11:08 BP 138 / 92; Pulse 68; Resp 16; Temp 98.8(O); Pulse Ox 100% on R/A; Weight 99.79 kg; hb Height 5 ft. 2 in. ; Pain 5/10; 13:17 BP 133 / 91; Pulse 74; Resp 18; Pulse Ox 99% on R/A; ph 14:14 BP 127 / 89; Pulse 72; Resp 18; Temp 97.5; Pulse Ox 98% on R/A; ph 11:08 Body Mass Index 40.24 (99.79 kg, 157.48 cm) hb 11:08 Pain Scale: Adult hb MDM: 10:56 Medical Screening Exam initiated sb4 14:21 Data reviewed: vital signs, nurses notes, lab test result(s), radiologic studies, and sb4 as a result, I will discharge patient. Counseling: I had a detailed discussion with the patient and/or guardian regarding the historical points, exam findings, and any diagnostic results supporting the discharge/admit diagnosis, lab results, radiology results, the need for outpatient follow up, for definitive care, to return to the emergency department if symptoms worsen or persist or if there are any questions or concerns that arise at home. 14:22 Special discussion: Based on the patient's Hx, exam, and Dx evaluation, there is no sb4 indication for emergent surgery or inpatient Tx. It is understood by the patient/guardian that if the Sx's persist or worsen they need to return immediately for re-evaluation. 11/01 11:06 Order name: CBC with Diff; Complete Time: 11:31 sb4 11/01 11:06 Order name: CMP; Complete Time: 11:53 sb4 11/01 11:06 Order name: Lipase; Complete Time: 11:53 sb4 11/01 11:06 Order name: Test, Urine; Complete Time: 11:43 sb4 11/01 11:06 Order name: Urinalysis w/ reflexes; Complete Time: 11:43 sb4 11/01 11:06 Order name: CT Abd/Pelvis - IV Contrast Only; Complete Time: 12:42 sb4 11/01 11:06 Order name: IV Saline Lock; Complete Time: 11:35 sb4 11/01 11:06 Order name: Labs collected and sent; Complete Time: 11:35 sb4 Administered Medications: 13:17 Drug: Ketorolac IVP 15 mg IVP once Route: IVP; Site: right antecubital; ph 14:14 Follow up: Response: No adverse reaction ph 13:17 Drug: Dicyclomine PO 20 mg PO once Route: PO; ph 14:14 Follow up: Response: No adverse reaction ph Disposition Summary: 11/01/24 13:47 Discharge Ordered Notes: Location: Home sb4 Problem: new sb4 Symptoms: have improved sb4 Condition: Stable sb4 Diagnosis - Lower abdominal pain, unspecified sb4 Followup: sb4 - With: Emergency Department - When: As needed - Reason: Trouble breathing, Worsening of condition Discharge Instructions: - Discharge Summary Sheet sb4 - Pain Without a Known Cause sb4 - Abdominal Pain, Adult, [id number] sb4 Forms: - Patient Portal Instructions sb4 - Leadership Thank You Letter sb4 Prescriptions: - Colace 100 mg Oral Tablet - take 1 tablet ORAL route every 12 hours; 14 tablet; Refills: 0, Product sb4 Selection Permitted - dicyclomine 20 mg Oral tablet - take 1 tablet ORAL route 3 times per day; 20 tablet; Refills: 0, Product sb4 Selection Permitted Signatures: Dispatcher [employer] Kathi Head RN RN Kristyn Collazo RN RN Sonia Friedman PA-C PA-C sb4
[2024-11-01 14:40] VITALS: BP 127/89; TEMP 97.5; O2SAT 98
== END 2024-11-01 14:15 | disposition home or self-care (01) ==
LOC: ER 10:52
DX: R10.30 Lower abdominal pain, unspecified (principal); R11.2 Nausea with vomiting, unspecified
CPT/HCPCS: 85025; 81001; 36415; 81025; 83690; 80053; 74177; 96374; 99284; Q9967